=== PATIENT | male | born 1990 | race Caucasian/White ===

== ENCOUNTER 2017-10-31 17:31 | Emergency (ER) | payer MEDICAID ==
[~2017-10-31] VITALS: Ht 170.2 cm; Wt 63.5 kg
[2017-10-31 17:40] VITALS: BP_SYST 134
[2017-10-31] MEDS ORDERED: PREDNISONE 10 MG TABLET PO ONE (18:00)
[2017-10-31] MEDS ORDERED: PREDNISONE 20 MG TABLET PO ONE (18:00)
[2017-10-31] MEDS ORDERED: valACYclovir HCL 500 MG TABLET PO ONE (18:00)
== END 2017-10-31 18:15 | disposition home or self-care (01) ==
LOC: SED 17:31
DX: G51.0 Bell's palsy (principal); R03.0 Elevated blood-pressure reading, without diagnosis of hypertension; E11.9 Type 2 diabetes mellitus without complications
CPT/HCPCS: 99284; J7512 ×2